=== PATIENT | female | born 1955 | race Caucasian/White ===

== ENCOUNTER 2019-03-06 09:36 | Outpatient (CLI) | payer OTHER, SELFPAY ==
[2019-03-06 10:18] LABS: Alanine Aminotransferase 27 U/L (4-35); Albumin Level 4.2 g/dL (3.5-5.1); Alkaline Phosphatase 74 U/L (38-126); Aspartate Amino Transferase 24 U/L (14-36); Bilirubin,Total 0.9 mg/dL (0.2-1.3); Blood Urea Nitrogen 21 mg/dL (7-17); Calcium 9.1 mg/dL (8.4-10.2); Carbon Dioxide 30 mmol/L (22-30); Chloride 100 mmol/L (98-107); Cholesterol 274 mg/dL (0-200); Estimated Glomerular Filt Rate 41; Glucose 202 mg/dL (65-105); HDL Direct 41 mg/dL; Potassium 3.7 mmol/L (3.4-5.0); Sodium 139 mmol/L (137-145); Triglycerides 251 mg/dL (<150)
[2019-03-06 10:22] LABS: Hemoglobin A1C 8.4 % (<5.7)
[2019-03-06 10:33] LABS: LDL Cholesterol Direct 184 mg/dL
== END 2019-03-06 09:37 | disposition home or self-care (01) ==
PROVIDERS: PCP Emergency Medicine; Visit Provider Emergency Medicine
DX: R73.9 Hyperglycemia, unspecified (principal); E78.2 Mixed hyperlipidemia; E03.9 Hypothyroidism, unspecified
CPT/HCPCS: 36415; 80053; 80061; 83036; 84443

== ENCOUNTER 2019-03-26 16:29 | Outpatient (CLI) | payer OTHER, SELFPAY ==
--- NOTE | ~2019-03-26 | XR_ITS ---
XR foot LT 2V DATE: 03/26/2019 16:55 INDICATION: Left hip pain, redness TECHNIQUE: AP and lateral views COMPARISON: None FINDINGS: There is joint space narrowing and spurring at the first metatarsophalangeal joint. There i s osteoarthritic narrowing at multiple interphalangeal joints. No fracture or dislocation, periosteal reaction or bone destruction. No erosive change is evident. No punched out lesion is detected. 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 Reviewed, dictated and finalized at location B. 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
== END 2019-03-26 16:30 | disposition home or self-care (01) ==
LOC: ANHIMG 16:31
PROVIDERS: PCP Emergency Medicine; Visit Provider Emergency Medicine
DX: M79.672 Pain in left foot (principal); M10.9 Gout, unspecified; M19.072 Primary osteoarthritis, left ankle and foot
CPT/HCPCS: 73620

== ENCOUNTER 2019-07-04 10:01 | Outpatient (CLI) | payer OTHER, SELFPAY ==
[2019-07-04 10:30] VITALS: PULSE 84; O2SAT 96
[2019-07-04 10:35] VITALS: PULSE 99; O2SAT 94
[2019-07-04 10:45] VITALS: PULSE 88; O2SAT 97
--- NOTE | 2019-07-04 10:55 | HOMEO2EVAL ---
Home Oxygen Evaluation RC: Home Oxygen (O2) Evaluation Start: 07/04/19 10:53 Freq: Status: Active Protocol: RPE Activity Type Activity Date Activity User E-Sign Co-Sign Detail Recorded Client Recorded Date Recorded By Document 07/04/19 10:30 ILEANA [email or web address] 07/04/19 10:54 ILEANA Document 07/04/19 10:35 ILEANA [email or web address] 07/04/19 10:54 ILEANA Document 07/04/19 10:45 ILEANA [email or web address] 07/04/19 10:54 ILEANA 07/04/19 07/04/19 07/04/19 10:30 10:35 10:45 Home O2 Evaluation Test Phase Resting Exercise Resting Oxygen Delivery Room Air Room Air Room Air Pulse Oximetry (90-100 %) 96 94 97 Pulse Rate (60-100 beats/min) 84 99 88 Ambulation Distance (feet) 800 Home Oxygen Evaluation Comments NO HOME O2 NEEDED Treatment Charges O2 Evaluation
--- NOTE | 2019-07-04 10:55 | PCRCNOTE ---
HOME O2 EVAL DONE, NO HOME O2 NEEDED AT THIS TIME.
== END 2019-07-04 10:02 | disposition home or self-care (01) ==
PROVIDERS: PCP Student in an Organized Health Care Education/Training Program; Visit Provider Nurse Practitioner Family
DX: E11.65 Type 2 diabetes mellitus with hyperglycemia (principal); N18.3 Chronic kidney disease, stage 3 (moderate)
CPT/HCPCS: 94618

== ENCOUNTER 2019-09-25 13:40 | Outpatient (RCR) | payer OTHER, SELFPAY ==
[2019-09-25 13:46] VITALS: BMI 29.7
[2019-09-25 13:47] VITALS: BMI 29.7
== END 2019-12-10 08:26 | disposition home or self-care (01) ==
LOC: ANHDMC 13:40
PROVIDERS: PCP Student in an Organized Health Care Education/Training Program; Visit Provider Student in an Organized Health Care Education/Training Program
DX: E11.65 Type 2 diabetes mellitus with hyperglycemia (principal); Z71.3 Dietary counseling and surveillance
CPT/HCPCS: 97802

== ENCOUNTER 2019-12-25 09:32 | Outpatient (CLI) | payer OTHER, SELFPAY ==
[2019-12-25 10:31] LABS: Basophils Absolute Auto 0.1 K/mm3 (0.0-0.1); Basophils Percent Auto 0.6 % (0.2-1.2); Eosinophils Absolute Auto 0.2 K/mm3 (0-0.3); Eosinophils Percent Auto 2.3 % (0-4.4); Hematocrit 37.2 % (37.0-47.0); Hemoglobin 12.3 g/dL (12.0-15.0); Immature Granulocyte Absolute 0.01 K/mm3 (0.00-0.031); Immature Granulocyte Percent A 0.1 % (0-0.5); Lymphocytes Absolute Auto 2.33 K/mm3 (0.9-3.2); Lymphocytes Percent Auto 28.3 % (18.3-44.2); Mean Corpuscular HGB Conc 33.1 g/dl (32-36); Mean Corpuscular Hemoglobin 28.3 pg (26-34); Mean Corpuscular Volume 85.5 fl (80-100); Mean Platelet Volume 11.8 fl (7.4-10.4); Monocytes Absolute Auto 0.4 K/mm3 (0.1-0.6); Monocytes Percent Auto 4.7 % (2.6-8.5); Neutrophils Absolute Auto 5.3 K/mm3 (1.3-6.7); Platelet Count Result 191 k/mm3 (150-375); Red Blood Count 4.35 M/mm3 (4.2-5.4); Red Cell Distribution Width 13.2 % (11.5-14.5); White Blood Count 8.2 K/mm3 (4.5-10.0)
[2019-12-25 10:38] LABS: Hemoglobin A1C 10.4 % (<5.7)
[2019-12-25 10:45] LABS: Alanine Aminotransferase 18 U/L (4-35); Albumin Level 4.3 g/dL (3.5-5.1); Alkaline Phosphatase 74 U/L (38-126); Anion Gap 10 mmol/L (8-16); Aspartate Amino Transferase 21 U/L (14-36); Blood Urea Nitrogen 25 mg/dL (7-17); Calcium 9.3 mg/dL (8.4-10.2); Carbon Dioxide 32 mmol/L (22-30); Chloride 98 mmol/L (98-107); Estimated Glomerular Filt Rate 45; Glucose 331 mg/dL (65-105); Potassium 3.6 mmol/L (3.4-5.0); Sodium 140 mmol/L (137-145)
[2019-12-25 11:16] LABS: Vitamin D 25 Hydroxy 42.7 ng/mL
[2019-12-25 18:10] LABS: Free T4 Free Thyroxine Reflex 0.75 ng/dL (0.78-2.19)
== END 2019-12-25 09:33 | disposition home or self-care (01) ==
PROVIDERS: PCP Student in an Organized Health Care Education/Training Program; Visit Provider Student in an Organized Health Care Education/Training Program
DX: E11.9 Type 2 diabetes mellitus without complications (principal); Z79.1 Long term (current) use of non-steroidal anti-inflammatories (NSAID); E03.9 Hypothyroidism, unspecified; Z68.29 Body mass index [BMI] 29.0-29.9, adult
CPT/HCPCS: 36415; 80053; 82306; 83036; 84439; 84443; 85025

== ENCOUNTER 2019-12-28 10:20 | Outpatient (CLI) | payer OTHER, SELFPAY ==
[2019-12-28 11:45] LABS: Creatinine Urine 120.8 mg/dL
[2019-12-28 11:49] LABS: MALB Creatinine Ratio 13.7 mg/g (0-30); Microalbumin Urine Random 16.5 mg/L (0-16.7)
== END 2019-12-28 10:21 | disposition home or self-care (01) ==
PROVIDERS: PCP Student in an Organized Health Care Education/Training Program; Visit Provider Student in an Organized Health Care Education/Training Program
DX: E11.9 Type 2 diabetes mellitus without complications (principal); Z51.81 Encounter for therapeutic drug level monitoring; Z79.4 Long term (current) use of insulin
CPT/HCPCS: 82043

== ENCOUNTER 2020-02-15 10:52 | Outpatient (CLI) | payer OTHER, SELFPAY ==
[2020-02-15 12:08] LABS: Free T4 Free Thyroxine 0.76 ng/mL (0.78-2.19)
[2020-02-15 13:45] LABS: Free T4 Free Thyroxine Reflex 0.78 ng/dL (0.78-2.19)
[2020-02-15 15:25] LABS: Total Triiodothyronine (T3) 0.76 NG/ML (0.97-1.69)
== END 2020-02-15 10:53 | disposition home or self-care (01) ==
LOC: ANHLAB 10:54
PROVIDERS: PCP Student in an Organized Health Care Education/Training Program; Visit Provider Student in an Organized Health Care Education/Training Program
DX: E03.9 Hypothyroidism, unspecified (principal)
CPT/HCPCS: 36415; 84439; 84443; 84480

== ENCOUNTER 2020-04-22 08:46 | Outpatient (CLI) | payer OTHER, SELFPAY ==
[2020-04-22 09:32] LABS: Uric Acid 8.2 mg/dL (2.5-7.5)
[2020-04-22 09:35] LABS: Hemoglobin A1C 10.3 % (<5.7)
[2020-04-22 10:17] LABS: Free T4 Free Thyroxine 1.29 ng/mL (0.78-2.19)
== END 2020-04-22 08:47 | disposition home or self-care (01) ==
PROVIDERS: PCP Student in an Organized Health Care Education/Training Program; Visit Provider Student in an Organized Health Care Education/Training Program
DX: E03.9 Hypothyroidism, unspecified (principal); Z87.39 Personal history of other diseases of the musculoskeletal system and connective tissue; E11.9 Type 2 diabetes mellitus without complications; Z51.81 Encounter for therapeutic drug level monitoring; Z79.4 Long term (current) use of insulin
CPT/HCPCS: 36415; 83036; 84439; 84443; 84550

== ENCOUNTER 2020-07-21 08:36 | Outpatient (CLI) | payer OTHER, SELFPAY ==
--- NOTE | ~2020-07-21 | US_ITS ---
EXAMINATION: US art doppler w stephanie WALKER DATE: 07/21/2020 09:17 INDICATION: Decreased pedal pulses TECHNIQUE: Segmental pressures and plethysmographic and Doppler waveforms of the brachial and lower e xtremity arteries were obtained. COMPARISON: None. FINDINGS: Right and left brachial artery pressures of 182 mm Hg and 185 mm Hg, respectively, are concordant (no rmal difference <= 30 mmHg). The vessels throughout both the left and right lower limbs were unable t o be occluded precluding assessment for high thigh brachial indices, ankle brachial indices and segme ntal pressure gradients. The right great toe-brachial index (TBI) is 0.96 (normal >= 0.6-0.8). Arterial waveforms are triphasi c in the right common femoral artery and biphasic in the remaining arteries with brisk systolic upstr okes throughout right lower limb. The left TBI is 0.93. Arterial waveforms are triphasic at the left common femoral, superficial femora l and dorsalis pedis arteries and biphasic in the left popliteal and posterior tibial arteries with b risk systolic upstrokes throughout. IMPRESSION: 1. Normal bilateral TBIs. No significant arterial occlusive disease. Reviewed, dictated and finalized at location A.
== END 2020-07-21 08:37 | disposition home or self-care (01) ==
PROVIDERS: PCP Student in an Organized Health Care Education/Training Program; Visit Provider Student in an Organized Health Care Education/Training Program
DX: E11.42 Type 2 diabetes mellitus with diabetic polyneuropathy (principal); Z79.4 Long term (current) use of insulin; R09.89 Other specified symptoms and signs involving the circulatory and respiratory systems
CPT/HCPCS: 93923